=== PATIENT | female | born 1995 | race Caucasian/White ===

== ENCOUNTER 2023-09-08 13:41 | Outpatient (CLI) | payer OTHER, SELFPAY ==
[2023-09-08 13:17] LABS: Abs Immature Grans 0.03 10^3/uL (0.0-0.06); Absolute Basophil Count 0.04 10^3/uL (0.0-0.2); Absolute Eosinophil Count 0.12 10^3/uL (0.0-0.7); Absolute Lymphocyte Count 1.96 10^3/uL (1.2-3.4); Absolute Neutrophil Count 4.63 10^3/uL (1.2-6.7); Basophils % 0.6 %; Eosinophils % 1.7 %; HCT 40.5 % (36.0-46.0); HGB 14.1 g/dL (11.2-15.7); Immature Grans % 0.4 %; Lymphocytes % 27.7 %; MCHC 34.8 % (32.0-36.0); MCV 86 fL (80-95); MPV 9.9 fL (8.0-11.0); Monocytes % 4.2 %; Neutrophils % 65.4 %; Platelet Count 202 10^3/uL (130-400); RDW 13.2 % (11.7-14.6); RDW-SD 41.1 fL; WBC 7.08 10^3/uL (4.4-10.8)
== END 2023-09-08 13:42 | disposition home or self-care (01) ==
LOC: LBO 13:43
PROVIDERS: Visit Provider Obstetrics & Gynecology
DX: O03.9 Complete or unspecified spontaneous abortion without complication (principal)
CPT/HCPCS: 36415; 86850; 86900; 86901; 85025

== ENCOUNTER 2023-09-09 09:55 | Day surgery (SDC) | payer OTHER, SELFPAY ==
[2023-09-09] VITALS (8 sets, daily range): BP systolic 76–104; BP diastolic 48–68; PULSE 72–85; RESP 14–17; TEMP 36.4–36.6; O2SAT 98–100; BMI 26.6
[2023-09-09] MEDS: DOXYCYCLINE 100 MG in Normal Saline 100 ML IVPB (10:35)
[2023-09-09] MEDS: Normal Saline 1,000 ML 125 ML IV (10:38)
--- NOTE | 2023-09-09 10:45 | ANES.PREOP_ITS ---
General Info Date of Service Date Performed: 09/09/23 Height: 5 ft 3 in Weight: 68.4 kg Body Mass Index (BMI): 26.6 Surgical Procedure: Operation Date: 09/09/23 10:40 Proposed Procedure Side Surgeon p Suction D&C Caitlin Felipe DO Meds Allergies and Home Medications Allergies Allergy/AdvReac Type Severity Reaction Status Date / Time epinephrine AdvReac Cardiac Verified 09/09/23 10:07 Dysrhythmia codiene AdvReac Other (See Uncoded 09/09/23 10:07 Comment) Home Medication Medication Instructions Recorded vits no.126-ferrous fum tab PO 09/08/23 28 mg iron-folic acid 800 mcg tablet (Classic ) Current Visit Medications: Current Medications Generic Name Dose Route Start Last Admin Trade Name Freq PRN Reason Stop Dose Admin Sodium Chloride 1,000 mls @ 125 mls/hr 09/09/23 06:00 09/09/23 10:38 Saline 1000ml Bag IV 09/09/23 23:59 125 mls/hr INFUSION JORGE Administration Doxycycline Hyclate 100 mg/ 100 mls @ 100 mls/hr 09/09/23 06:00 09/09/23 10:35 Sodium Chloride IVPB 09/09/23 23:59 100 mls/hr PREOP JORGE Administration IV Miscellaneous Supplies 1 each 09/09/23 06:00 Iv Access IV 09/09/23 23:59 DIRECTED JORGE Sodium Chloride 0 ml 09/09/23 06:00 Normal Saline Flush 10 Ml Syr IV 09/09/23 23:59 PRN PRN Sodium Chloride 0 ml 09/09/23 06:00 Normal Saline 10 Ml Vial IJ 09/09/23 23:59 DIRECTED PRN Sterile Water 0 ml 09/09/23 06:00 Water,Injection,Sterile 10 Ml Vial IJ 09/09/23 23:59 DIRECTED PRN PFSH Active Problems Active Problems: Problem Status Onset Code Miscarriage O03.9 Surgical History Surgical History (Updated 09/08/23 @ 13:09 by Renetta Kennedy RN) [place] teeth extracted History of low transverse section Tobacco Smoking/Tobacco Use Status: Never Alcohol Alcohol Intake: never Substance Use Substance use: Never Prental History History 4 Para Hx # Term Pregnancies 2 Multiple births Hx # Pregnancies Ectopic pregnancies AB induced Hx Number of Living Children 2 AB spontaneous 1 Past Pregnancies Del. Date GA/Weeks # Preg Succ Route Wgt Sex Labor Lgth Anesth esia Location Prov Complic Unknown 40 Yes Unknown 6 No Unknown Yes vaginal Delivery Date: Last Updated by: Caitlin Felipe, DO Spontaneous miscarriage Vital Signs and Lab Results Vital Signs Most Recent Vital Signs in EMR: Most Recent Vital Signs Temp Pulse Resp BP Pulse Ox 36.6 C 75 16 104/68 100 09/09/23 10:25 09/09/23 10:25 09/09/23 10:25 09/09/23 10:25 09/09/23 10:25 Lab Results Blood Type / Crossmatch: Antibody Screen NEGATIVE 09/08/23 Complete Blood Count: White Blood Count 7.08 10^3/uL (4.4-10.8) 09/08/23 12:55 Red Blood Count 4.70 10^6/uL (3.93-5.22) 09/08/23 12:55 Hemoglobin 14.1 g/dL (11.2-15.7) 09/08/23 12:55 Hematocrit 40.5 % (36.0-46.0) 09/08/23 12:55 Platelet Count 202 10^3/uL (130-400) 09/08/23 12:55 Complete Metabolic Panel: No Data to Display Liver Function Panel: No Data to Display Coagulation Panel: No Data to Display Cardiac Panel: No Data to Display Arterial Blood Gas: No Data to Display Venous Blood Gas: No Data to Display Pancreas Panel: No Data to Display Thyroid Panel: No Data to Display Infectious Disease: No Data to Display Blood Cultures: No Data to Display Toxicology Panel: No Data to Display Panel: No Data to Display Anesthesia Assessment and Plan Anesthesia History Personal History: No History of Anesthesia Complications Family History: No Family History of Anesthesia Complications Exercise Tolerance Exercise Tolerance: Metabolic Equivalents>4 Pertinent Negatives Pertinent Negatives: No Symptoms of GERD, No Major Cardiovascular Symptoms or Complaints and No Major Pulmonary Symptoms or Complaints Cardiac & Pulmonary Exam Cardiac Exam: Normal S1/S2 Heart Sounds Pulmonary Exam: Clear Bilateral Breath Sounds Implantable Cardiac Device Does patient have a Pacemaker or an ICD?: No Airway Exam Known Difficult Airway: No Mallampati Class: 1 Mouth Opening: Normal (> 3cm) Thyromental Distance: Greater than 3 cm Neck Range of Motion: Full ROM Neck Circumference: Normal Teeth Condition: Normal Dentition ASA Classification ASA Score: ASA 2 Emergency Case?: No NPO Status NPO Status: NPO Clears >2 hours, Solids >8 hours and Full Stomach (12/week/demise) Status Status: Positive HCG Anesthesia Plan Resuscitation Status: Full Code Anesthesia Technique: General Anesthesia Airway Planned: Endotracheal Tube Monitors Used: Standard Monitors
--- NOTE | 2023-09-09 11:50 | POCSPONT_PTH ---
PATIENT: Nayeli Flowers LOC: [facility] U#:[id number] AGE/SX: 28/F ROOM: RE09/09/[address]: Caitlin Felipe DO : 1995 BED: DIS: 09/09/2023 SPEC #: [id number] RECD: 09/09/23 12:45 STATUS: BRYAN REQ #: [id number] VAISHNAVI: 09/09/23 11:[address]: Caitlin Felipe DEPT: Surgical Specimen RECD BY: Pia Castañeda ENTERED: 09/09/23 12:51 SP TYPE: AAKASH SANCHEZ DR: None Tissues: 1 - ,SPONTANEOUS CHROMOSOME ANALYSIS PROFILE Procedures: GROSS AND MICRO LEVEL 4 CHROMOSOME ANALYSIS 15-20 CELLS CHROMOSOME ANALYSIS TISSUE CULTURE Comments: [id number] (CYTOGENETICS CG24- )
--- NOTE | 2023-09-09 12:01 | ROE_ITS ---
Date of service: 09/09/23 Time of Service: 12:01 Operative Note Operative Note DATE OF PROCEDURE: 09/09/23 PRE-OP DIAGNOSIS: Intrauterine embryonic demise POST-OP DIAGNOSIS: same PROCEDURE: Dilation and curettage with suction SURGEON: Caitlin Felipe ASSISTING SURGEON: Sabrina Cox ANESTHESIA TYPE: General LMA/ETT Refer to Anesthesia Record ESTIMATED BLOOD LOSS: 100 PATHOLOGY: other (Uterine contents, products of conception for gross, micro, and cytogenetics) COMPLICATIONS: None Patient was transported to: PACU Patient's condition: stable Indications: Intrauterine embryonic demise, 10 weeks 5 days by measurement Findings: Ultrasound confirmed intrauterine embryonic demise. Complete emptying of the uterine cavity confirmed by ultrasound Procedure Description: After full informed consent was obtained, patient was taken the operating suite. She received doxycycline IV for surgical infection prophylaxis. Her bladder was previously emptied. She had pneumatic compression stockings for DVT prophylaxis. She was placed in the supine position and endotracheal intubation performed from the administration of general anesthesia with ease. She was then placed in the modified dorsolithotomy position and prepped and draped in the usual sterile fashion. Exam under anesthesia revealed a uterus that was midline, mobile, and approximately 10 to 12 weeks size. Under ultrasound guidance, dilation and curettage performed. Speculum was inserted into the vaginal vault and an Allis clamp used to grasp the anterior lip of the cervix. Cervical os dilated to the point that a 10 [place] curved suction curette could be passed without difficulty. Under ultrasound guidance, with suction curettage, the uterine cavity was evacuated. After 2 passes with the suction curette a gentle sharp curettage under ultrasound guidance was performed. A second pass with the suction curette was performed to confirm complete emptying. At this point with the uterus firm, involuted, and hemostatic, the procedure was terminated. Speculum was removed as was Allis clamp. The patient was returned to the dorsal supine position and awoke from anesthesia without difficulty. She was taken to the postanesthesia care unit in stable condition. EBL: 100 mL Findings: Intrauterine embryonic demise with complete evacuation of the uterine cavity. Pathology: Uterine contents, products of conception for gross, micro, and cytogenetics. Fluids: Crystalloid per anesthesia. Complications: None apparent
--- NOTE | 2023-09-09 13:02 | W.ANESPOSTOP ---
Postoperative Evaluation Date, Time and Location Date Performed: 09/09/23 Time Performed: 12:58 Patient Location: Day Surgery Unit Vital Signs Most Recent Imported Vital Signs: Most Recent Vital Signs Temp Pulse Resp BP Pulse Ox 36.6 C 72 16 76/48 L 100 09/09/23 12:38 09/09/23 12:38 09/09/23 12:38 09/09/23 12:38 09/09/23 12:38 Pain Score Most Recent Pain Score: Most Recent Pain Score Pain Level 0 09/09/23 12:38 Assessment Mental Status: Awake (Alert & Oriented to Patient Baseline) Airway and Respiratory Function: Patent airway with normal (patient baseline) respiratory exam Cardiovascular Function: Hemodynamically Stable Hydration Status: Adequately Hydrated Nausea & Vomiting: No Nausea or Vomiting Pain: Pt. Denies Any Pain Peripheral Nerve Block: Patient did not receive a nerve block
== END 2023-09-09 13:34 | disposition home or self-care (01) ==
PROVIDERS: Visit Provider Obstetrics & Gynecology
PROC: (CPT 59841; principal; 2023-09-09 10:30)
DX: O02.1 Missed abortion (principal); Z3A.10 10 weeks gestation of pregnancy
CPT/HCPCS: 59820; 88305; 88233; 88262; J0330; J1100; J1885; J2001; J2250; J2405; J2704

== ENCOUNTER 2023-10-05 16:27 | Outpatient (CLI) | payer OTHER, SELFPAY ==
[2023-10-05 16:26] LABS: HCG Quant, Pregnancy 2 mIU/mL (1-3)
== END 2023-10-05 16:28 | disposition home or self-care (01) ==
LOC: LBO 16:28
PROVIDERS: PCP Nurse Practitioner Adult Health; Visit Provider Obstetrics & Gynecology
DX: Z98.890 Other specified postprocedural states (principal)
CPT/HCPCS: 36415; 84702

== ENCOUNTER 2023-12-15 09:32 | Day surgery (SDC) | payer OTHER, SELFPAY ==
--- NOTE | 2023-12-14 20:01 | W.PREOPHP ---
Assessment and Plan Assessment and plan (1) Umbilical hernia: Status: Acute Assessment and plan: We reviewed the plan for an open umbilcal hernia repair with implantation of a permanent mesh today. Nayeli has no new questions or concerns and we can proceed as plan. History of Present Illness History of Present Illness Chief Complaint: umbilical hernia Narrative: Nayeli 28 years old, she tells me she was first noticed the hernia about 3 years ago. It started as a lump around her umbilicus, and increased in size over the coming months. Generally, it did not bother her, but during her last , she did notice increasing episodes of the abdominal pain, and some discoloration of the skin overlying the hernia itself. She denies any obstructive symptoms like nausea or vomiting. 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 Status post dilation and curettage (Acute) 11-week intrauterine embryonic demise 09/09/2023 Miscarriage (Acute) Surgical History [place] teeth extracted History of low transverse section Social History Smoking/Tobacco Use Status: Never Smoking risk assessment performed?: Yes Alcohol Intake: current Alcohol Intake frequency: a few times a month Drug use: Never Substance use type: does not use Housing: apartment Number of Children: 2 Sexually active: Yes Do you feel safe at home: Yes ([facility]AP) Do you feel safe in your relationship?: Yes History History 4 Para Hx # Term Pregnancies 2 Multiple births Hx # Pregnancies Ectopic pregnancies AB induced Hx Number of Living Children 2 AB spontaneous 1 Past Pregnancies Del. Date GA/Weeks # Preg Succ Route Wgt Sex Labor Lgth Anesthesia Location Prov Complic Unknown 40 Yes Unknown 6 No Unknown Yes vaginal Delivery Date: Last Updated by: Caitlin Felipe, DO Spontaneous miscarriage Meds Allergies and Home Medications Allergies Allergy/AdvReac Type Severity Reaction Status Date / Time codeine Allergy Intermediate Hives Verified 12/15/23 09:58 epinephrine AdvReac Cardiac Verified 12/15/23 09:58 Dysrhythmia Home Medications ?Medication ?Instructions ?Recorded ?Confirmed ?Type vits no.126-ferrous fum 1 tab PO DAILY 09/08/23 12/15/23 History 28 mg iron-folic acid 800 mcg tablet (Classic ) ibuprofen 800 mg tablet 800 mg PO Q8H PRN #60 tabs 09/09/23 12/15/23 Rx cholecalciferol (vitamin D3) 25 25 mcg PO DAILY 10/05/23 12/15/23 History mcg (1,000 unit) capsule omega-3 fatty acids 1,000 mg 1,000 mg PO DAILY 10/05/23 12/15/23 History capsule Exam Const General: cooperative, healthy appearing and not in acute distress Neck Neck: normal visual inspection, no lymphadenopathy and supple Resp Effort & Inspection: normal respiratory effort Auscultation: clear to auscultation bilaterally Cardio Jugular venous pressure: no JVD Rate: regular rate Rhythm: regular rhythm Heart Sounds: S1 normal and S2 normal GI Inspection: normal to inspection Palpation: soft, no guarding, hernia (Mostly reducible umbilical) and nontender Percussion: normal to percussion Auscultation: normal bowel sounds Neuro General: patient alert, patient awake and patient oriented x3 Psych Appearance: grossly normal
--- NOTE | 2023-12-14 20:02 | W.PM.DSUDISC ---
Date of service: 12/15/23 Time of Service: 11:40 Discharge Plan Disposition Patient Disposition: Home Condition: Good Discharge Details Reason For Visit: umbilical hernia repair Attending Provider: Bowen Ngo Primary Care Provider: Janneth Cardoso Home Meds and New Rx's Prescriptions: New tramadol 50 mg tablet 50 mg PO Q8H PRNQty: 12 0RF Rx Instructions: Take 1 tablet by mouth up to every 8 hours if needed for severe pain. Continued omega-3 fatty acids 1,000 mg capsule 1,000 mg PO DAILY cholecalciferol (vitamin D3) 25 mcg (1,000 unit) capsule 25 mcg PO DAILY Classic 28 mg iron- 800 mcg tablet 1 tab PO DAILY ibuprofen 800 mg tablet 800 mg PO Q8H PRNQty: 60 1RF Discharge Instructions Instructions: Abdominal Hernia Repair, Open Surgery Additional Instructions: Nayeli, we were able to repair your hernia today just like we talked about beforehand. It contained just a small amount of internal abdominal fat, but nothing at all worrisome. I placed a permanent patch, close the hole over top of that. Hopefully this will be a durable repair for you in the years to come. Expect to have some pain in the area over the next few days. I recommend taking Tylenol and ibuprofen [id number], and I also provided a prescription for a medication called tramadol if you need it. Ice packs will also prove quite useful to help with the discomfort. You should be up and walking around a little bit more more each day. Avoid lifting anything greater than 5 pounds until we see each other in the office. If you need anything at all, please feel free to give me a call at any time. 1. Resume all of your regular medications. 2. Alternate heating pads and ice packs as needed for pain. 3. Alternate over the counter Tylenol and ibuprofen every 6 hours for the first 2 days, then use as needed. Use the prescription for tramadol if needed for more severe pain. 4. Leave bandage in place for 24 hours, then remove. 5. Shower with warm soapy water. Pat dry. Use a bandaid if needed to protect your clothing. 6. No soaking or tub baths until I see you in the office. 7. No heavy lifting until I see you in the office. 8.Call the office (or go directly to the emergency room after hours) if you notice any of the following: Develop chills (warm to touch), or if you have a thermometer and your temperature is above 101 Difficulty breathing or difficultly swallowing Persistent vomiting Any bleeding ? exceeding one tablespoon 9. Call your physician if the site where your intravenous was started becomes red, swollen, painful, and warm to touch. Stand Alone Forms: Anesthesia Discharge Inst., Angela Calderon (DSU) Referrals: Bowen Ngo MD [ [facility] STAFF PHYSICIAN] - 12/28/23 2:30 pm Activity:: no heavy lifting Remove Dressings/Wound Care:: 24 hours Shower/Bathe:: 24 hours Diet:: As Tolerated Discharge Orders Discharge Orders: Discharge Order (Routine); Ordered 12/14/23 Ordered By: Bowen Ngo DS: Diagnosis Discharge Diagnosis (1) Umbilical hernia: Status: Acute Asessment and Plan: Outpatient follow-up
--- NOTE | 2023-12-14 20:06 | W.PM.OP ---
Date of service: 12/15/23 Time of Service: 11:43 Operative Note Operative Note DATE OF PROCEDURE: 12/15/23 PRE-OP DIAGNOSIS: Umbilical hernia POST-OP DIAGNOSIS: same PROCEDURE: Open umbilical hernia repair with mesh SURGEON: Bowen Ngo ENGINEERING TECHNICAL ANALYST: Sandra Galindo ANESTHESIA TYPE: Local By Surgeon and General LMA/ETT Refer to Anesthesia Record ESTIMATED BLOOD LOSS: 10 PATHOLOGY: none sent COMPLICATIONS: None Patient was transported to: PACU Patient's condition: stable Implants: Bard Ventralex ST hernia patch Indications: Nayeli is a 28-year-old woman with a symptomatic umbilical hernia Findings: Approximately 2 cm x 2 cm umbilical ring hernia defect Procedure Description: After the induction of general tracheal anesthesia, I prepped and draped the anterior abdominal wall in the usual fashion. Next, I established a generous field block using local anesthetic. I then made a small semicircular incision along the underside of the umbilicus. I carefully dissected down to the fascia along the inferior border. Next, I isolated the umbilical stalk using blunt dissection. Hernia sac was slightly to the right side, and this was dissected free from the surrounding subcutaneous tissues and fascial edge. The hernia appeared to contain visceral fat. It was reduced back into the peritoneal space. The underside of the fascia was dissected clear, and a Bard Ventralex ST hernia patch was selected to fit. I used a 4.3 cm patch this was affixed to the underside of the fascia with interrupted Prolene in a U-stitch fashion. The patch was parachuted down below the fascia and secured in place. Great care was taken to ensure that it was brought out appropriately and had good coverage of the underside the tails of the patch were split, and affixed to the fascia as well. The fascial defect was then closed with interrupted Prolene's. Surgical site was irrigated. It was hemostatic. The subcuticular space was closed with interrupted Vicryl's, and the skin was closed with a running subcuticular stitch. Bandages were applied, the patient was not awakened from the anesthetic and transferred to the recovery unit.
[2023-12-15] VITALS (19 sets, daily range): BP systolic 102–126; BP diastolic 62–93; PULSE 63–85; RESP 12–20; TEMP 36–36.5; O2SAT 95–100; BMI 26.9
--- NOTE | 2023-12-15 08:36 | W.ANESPRE ---
General Info Date of Service Date Performed: 12/15/23 Height: 5 ft 3 in Weight: 69.059 kg Body Mass Index (BMI): 26.9 Surgical Procedure: Operation Date: 12/15/23 10:10 Proposed Procedure Side Surgeon p Herniorrhaphy Umbilical w/Mesh Bowen Ngo MD Meds Allergies and Home Medications Allergies Allergy/AdvReac Type Severity Reaction Status Date / Time codeine Allergy Intermediate Hives Verified 12/15/23 09:58 epinephrine AdvReac Cardiac Verified 12/15/23 09:58 Dysrhythmia Home Medication ?Medication ?Instructions ?Recorded vits no.126-ferrous fum 1 tab PO DAILY 09/08/23 28 mg iron-folic acid 800 mcg tablet (Classic ) ibuprofen 800 mg tablet 800 mg PO Q8H PRN #60 tabs 09/09/23 cholecalciferol (vitamin D3) 25 25 mcg PO DAILY 10/05/23 mcg (1,000 unit) capsule omega-3 fatty acids 1,000 mg 1,000 mg PO DAILY 10/05/23 capsule Current Visit Medications: Current Medications Generic Name Dose Route Start Last Admin Trade Name Freq PRN Reason Stop Dose Admin Acetaminophen 1,000 mg 12/15/23 06:00 Acetaminophen 500 Mg Tab PO 12/15/23 18:00 PREOP JORGE Celecoxib 200 mg 12/15/23 06:00 Celecoxib 200 Mg Cap PO 12/15/23 18:00 PREOP JORGE Gabapentin 600 mg 12/15/23 06:00 Gabapentin 300 Mg Cap PO 12/15/23 18:00 PREOP JORGE Hydromorphone HCl 0.2 mg 12/14/23 20:08 Hydromorphone 2 Mg/Ml Syr IVP 01/13/24 20:07 Q1H PRN PRN Ringer's Solution 1,000 mls @ 80 mls/hr 12/15/23 06:00 IV 01/13/24 23:59 INFUSION JORGE IV Miscellaneous Supplies 1 each 12/15/23 06:00 Iv Access IV 01/13/24 23:59 DIRECTED JORGE Sodium Chloride 0 ml 12/15/23 06:00 Normal Saline Flush 10 Ml Syr IV 01/13/24 23:59 PRN PRN Sodium Chloride 0 ml 12/15/23 06:00 Normal Saline 10 Ml Vial IJ 01/13/24 23:59 DIRECTED PRN Sterile Water 0 ml 12/15/23 06:00 Water,Injection,Sterile 10 Ml Vial IJ 01/13/24 23:59 DIRECTED PRN Tramadol HCl 50 mg 12/14/23 20:08 Tramadol 50 Mg Tab PO 01/13/24 20:07 Q6H PRN PRN Pain PFSH Active Problems Active Problems: Problem Status Onset Code Umbilical hernia Acute K42.9 Abnormal genetic test Acute R89.8 Status post dilation and curettage Acute Z98.890 Miscarriage Acute O03.9 Surgical History Surgical History [place] teeth extracted History of low transverse section Tobacco Smoking/Tobacco Use Status: Never Alcohol Alcohol Intake: current Alcohol intake frequency: a few times a month Substance Use Substance use: Never Substance use type: does not use Prental History History 4 Para Hx # Term Pregnancies 2 Multiple births Hx # Pregnancies Ectopic pregnancies AB induced Hx Number of Living Children 2 AB spontaneous 1 Past Pregnancies Del. Date GA/Weeks # Preg Succ Route Wgt Sex Labor Lgth Anesthesia Location Prov Complic Unknown 40 Yes Unknown 6 No Unknown Yes vaginal Delivery Date: Last Updated by: Caitlin Felipe DO Spontaneous miscarriage Vital Signs and Lab Results Vital Signs Most Recent Vital Signs in EMR: Temp Pulse Resp BP Pulse Ox 36.1 C L 75 16 114/79 100 12/15/23 10:00 12/15/23 10:00 12/15/23 10:00 12/15/23 10:00 12/15/23 10:00 Lab Results Blood Type / Crossmatch: No Data to Display Complete Blood Count: No Data to Display Complete Metabolic Panel: No Data to Display Liver Function Panel: No Data to Display Coagulation Panel: No Data to Display Cardiac Panel: No Data to Display Arterial Blood Gas: No Data to Display Venous Blood Gas: No Data to Display Pancreas Panel: No Data to Display Thyroid Panel: No Data to Display Infectious Disease: No Data to Display Blood Cultures: No Data to Display Toxicology Panel: No Data to Display Panel: No Data to Display Anesthesia Assessment and Plan Anesthesia History Personal History: No History of Anesthesia Complications Family History: No Family History of Anesthesia Complications Exercise Tolerance Exercise Tolerance: Metabolic Equivalents>4 Pertinent Negatives Pertinent Negatives: No Symptoms of GERD, No Major Cardiovascular Symptoms or Complaints and No History of CVA/TIA Cardiac & Pulmonary Exam Cardiac Exam: Normal S1/S2 Heart Sounds Pulmonary Exam: Clear Bilateral Breath Sounds Cardiac and Pulmonary Comment:: Recent URI: 7 days out. Here and NPO, we will proceed today Implantable Cardiac Device Does patient have a Pacemaker or an ICD?: No Airway Exam Known Difficult Airway: No Mallampati Class: 1 Mouth Opening: Normal (> 3cm) Thyromental Distance: Greater than 3 cm Neck Range of Motion: Full ROM Neck Circumference: Normal Teeth Condition: Normal Dentition ASA Classification ASA Score: ASA 2 Emergency Case?: No NPO Status NPO Status: NPO Clears >2 hours, Solids >8 hours Status Status: Negative HCG Anesthesia Plan Resuscitation Status: Full Code Anesthesia Technique: General Anesthesia Airway Planned: LMA Monitors Used: Standard Monitors
[2023-12-15] MEDS: Celecoxib 200 MG CAP PO (10:10)
[2023-12-15] MEDS: Acetaminophen 500 MG TAB 1000 MG PO (10:10)
[2023-12-15] MEDS: Gabapentin 300 MG CAP 600 MG PO (10:10)
[2023-12-15] MEDS: Lactated Ringers 1,000 ML 80 ML IV (10:45)
[2023-12-15] MEDS: ceFAZolin 2 GM/50 ML BAG 100 GM (11:01)
[2023-12-15] MEDS: Bupivacaine 0.25% Pres-Free 30 ML VIAL (11:14)
--- NOTE | 2023-12-15 12:54 | W.ANESPOSTOP ---
Postoperative Evaluation Date, Time and Location Date Performed: 12/15/23 Time Performed: 12:54 Patient Location: Day Surgery Unit Vital Signs Most Recent Imported Vital Signs: Most Recent Vital Signs Temp Pulse Resp BP Pulse Ox 36 C L 68 16 104/74 99 12/15/23 12:30 12/15/23 12:30 12/15/23 12:30 12/15/23 12:30 12/15/23 12:30 Pain Score Most Recent Pain Score: Most Recent Pain Score Pain Level 0 12/15/23 12:30 Assessment Mental Status: Arousable with meaningful communication Airway and Respiratory Function: Patent airway with normal (patient baseline) respiratory exam Cardiovascular Function: Hemodynamically Stable Hydration Status: Adequately Hydrated Nausea & Vomiting: No Nausea or Vomiting Pain: Pt. Denies Any Pain Peripheral Nerve Block: Patient did not receive a nerve block
== END 2023-12-15 13:35 | disposition home or self-care (01) ==
LOC: SUR 09:32
PROVIDERS: PCP Nurse Practitioner Adult Health; Visit Provider Surgery
PROC: (CPT 49591; principal; 2023-12-15 10:00)
DX: K42.9 Umbilical hernia without obstruction or gangrene (principal)
CPT/HCPCS: 49591; 81025; C1781; J0665; J0690; J1100; J2001; J2250; J2405; J2704; J3010

== ENCOUNTER 2024-07-11 01:39 | Outpatient (CLI) | payer OTHER, SELFPAY ==
[2024-07-11 16:29] LABS: HCG Quant, Pregnancy 16 mIU/mL (1-3)
== END 2024-07-11 01:40 | disposition home or self-care (01) ==
LOC: LBO 01:39
PROVIDERS: PCP Nurse Practitioner Adult Health; Visit Provider Obstetrics & Gynecology
DX: N91.0 Primary amenorrhea (principal)
CPT/HCPCS: 36415; 84702

== ENCOUNTER 2024-07-13 01:34 | Outpatient (CLI) | payer OTHER, SELFPAY ==
[2024-07-13 17:25] LABS: HCG Quant, Pregnancy 18 mIU/mL (1-3)
== END 2024-07-13 01:35 | disposition home or self-care (01) ==
PROVIDERS: PCP Nurse Practitioner Adult Health; Visit Provider Obstetrics & Gynecology
DX: N91.0 Primary amenorrhea (principal); O02.81 Inappropriate change in quantitative human chorionic gonadotropin (hCG) in early pregnancy
CPT/HCPCS: 36415; 84702

== ENCOUNTER 2024-07-18 14:28 | Outpatient (CLI) | payer OTHER, SELFPAY ==
[2024-07-18 16:14] LABS: HCG Quant, Pregnancy 2 mIU/mL (1-3); TSH (W/Ref FT4) 1.78 uIU/mL (0.36-3.74)
== END 2024-07-18 14:29 | disposition home or self-care (01) ==
LOC: LBO 14:29
PROVIDERS: PCP Nurse Practitioner Adult Health; Visit Provider Obstetrics & Gynecology
DX: O03.9 Complete or unspecified spontaneous abortion without complication (principal); N96 Recurrent pregnancy loss; O02.81 Inappropriate change in quantitative human chorionic gonadotropin (hCG) in early pregnancy
CPT/HCPCS: 36415; 84443; 84702

== ENCOUNTER 2024-08-14 11:58 | Outpatient (CLI) | payer OTHER, SELFPAY ==
[2024-08-14 12:29] LABS: Abs Immature Grans 0.02 10^3/uL (0.0-0.06); Absolute Basophil Count 0.03 10^3/uL (0.0-0.2); Absolute Eosinophil Count 0.09 10^3/uL (0.0-0.7); Absolute Lymphocyte Count 1.63 10^3/uL (1.2-3.4); Absolute Monocyte Count 0.32 10^3/uL (0.1-0.8); Absolute Neutrophil Count 4.79 10^3/uL (1.2-6.7); Basophils % 0.4 %; Eosinophils % 1.3 %; HCT 46.1 % (36.0-46.0); HGB 15.6 g/dL (11.2-15.7); Immature Grans % 0.3 %; Lymphocytes % 23.7 %; MCH 29.7 pg (27.0-33.0); MCHC 33.8 % (32.0-36.0); MCV 88 fL (80-95); MPV 9.9 fL (8.0-11.0); Monocytes % 4.7 %; Neutrophils % 69.6 %; Platelet Count 200 10^3/uL (130-400); RBC 5.25 10^6/uL (3.93-5.22); RDW 12.6 % (11.7-14.6); RDW-SD 40.4 fL; WBC 6.88 10^3/uL (4.4-10.8)
[2024-08-14 13:35] LABS: ALT 26 U/L (14-59); AST 13 U/L (15-37); Albumin 4.2 g/dL (3.4-5.0); Alkaline Phosphatase 74 U/L (46-116); Anion Gap 9.2 mmol/L (3-11); BUN 11 mg/dL (7-18); Bilirubin, Total 0.5 mg/dL (0.2-1.0); CO2 25.8 mmol/L (21.0-32.0); CREATININE 0.8 mg/dL (0.55-1.02); Calcium 9.2 mg/dL (8.5-10.1); Chloride 106 mmol/L (98-107); Estimated GFR 101.59 (mL/min/1.73m2); Glucose 81 mg/dL (74-106); Potassium 3.9 mmol/L (3.5-5.1); Sodium 141 mmol/L (136-145); TSH (W/Ref FT4) 1.39 uIU/mL (0.36-3.74); Total Protein 7.5 g/dL (6.4-8.2)
[2024-08-15 08:04] LABS: Rubella IgG Ab (UVM) Positive (See Note)
[2024-08-16 22:31] LABS: Phospholipid Ab, IgG <9.4 GPL; Phospholipid Ab, IgM <9.4 MPL
[2024-08-17 10:19] LABS: Factor V Leiden(R506Q) Mut Negative (Negative)
[2024-08-22 14:42] LABS: Result Summary Normal; Specimen Blood
== END 2024-08-14 11:59 | disposition home or self-care (01) ==
PROVIDERS: PCP Nurse Practitioner Adult Health; Visit Provider Obstetrics & Gynecology
DX: N96 Recurrent pregnancy loss (principal)
CPT/HCPCS: 36415; 80053; 81229; 81241; 86147; 84443; 85025; 86762

== ENCOUNTER 2024-10-16 12:20 | Outpatient (CLI) | payer OTHER, SELFPAY ==
[2024-10-16 12:58] LABS: HCG Quant, Pregnancy 143 mIU/mL (1-3)
[2024-10-17 00:38] LABS: Progesterone 19.6 ng/mL (See Table)
[2024-10-26 15:26] LABS: Result 46,XX; Result Summary Normal; Specimen Blood
== END 2024-10-16 12:21 | disposition home or self-care (01) ==
LOC: LBO 12:23
PROVIDERS: PCP Nurse Practitioner Adult Health; Visit Provider Advanced Practice Midwife
DX: N96 Recurrent pregnancy loss (principal); Z34.91 Encounter for supervision of normal pregnancy, unspecified, first trimester
CPT/HCPCS: 36415; 88230; 88262; 88291; 84144; 84702

== ENCOUNTER 2024-10-18 01:33 | Outpatient (CLI) | payer OTHER, SELFPAY ==
[2024-10-18 14:13] LABS: HCG Quant, Pregnancy 268 mIU/mL (1-3)
== END 2024-10-18 01:34 | disposition home or self-care (01) ==
LOC: LBO 01:33
PROVIDERS: PCP Nurse Practitioner Adult Health; Visit Provider Advanced Practice Midwife
DX: N96 Recurrent pregnancy loss (principal); Z3A.01 Less than 8 weeks gestation of pregnancy
CPT/HCPCS: 36415; 84702; 88230; 88262

== ENCOUNTER 2024-10-25 04:32 | Outpatient (CLI) | payer OTHER, SELFPAY ==
[2024-10-25 14:39] LABS: HCG Quant, Pregnancy 8002 mIU/mL (1-3)
== END 2024-10-25 04:33 | disposition home or self-care (01) ==
LOC: LBO 04:32
PROVIDERS: PCP Nurse Practitioner Adult Health; Visit Provider Advanced Practice Midwife
DX: Z34.91 Encounter for supervision of normal pregnancy, unspecified, first trimester (principal)
CPT/HCPCS: 36415; 84702

== ENCOUNTER 2024-10-30 14:57 | Outpatient (REF) | payer OTHER, SELFPAY ==
[2024-10-30 16:40] LABS: Glucose Negative (Negative)
== END 2024-10-30 14:58 | disposition home or self-care (01) ==
LOC: LBN 14:57
PROVIDERS: PCP Nurse Practitioner Adult Health; Visit Provider Advanced Practice Midwife
DX: Z3A.01 Less than 8 weeks gestation of pregnancy (principal); Z34.91 Encounter for supervision of normal pregnancy, unspecified, first trimester
CPT/HCPCS: 81003; 87480; 87510; 87660

== ENCOUNTER 2024-12-04 04:40 | Outpatient (CLI) | payer BC, SELFPAY ==
[2024-12-04 15:47] LABS: Abs Immature Grans 0.05 10^3/uL (0.0-0.06); HCT 37.5 % (36.0-46.0); HGB 13.0 g/dL (11.2-15.7); Immature Grans % 0.6 %; MCH 29.2 pg (27.0-33.0); MCHC 34.7 % (32.0-36.0); MCV 84 fL (80-95); MPV 10.0 fL (8.0-11.0); Platelet Count 230 10^3/uL (130-400); RBC 4.45 10^6/uL (3.93-5.22); RDW 12.1 % (11.7-14.6); RDW-SD 36.2 fL; WBC 8.09 10^3/uL (4.4-10.8)
[2024-12-05 10:29] LABS: Rubella IgG Ab (UVM) Positive (See Note)
[2024-12-05 11:46] LABS: HIV-1/2 Ag & Ab Screen Negative (Negative)
[2024-12-06 16:14] LABS: Hepatitis C Ab w Rflx HCV PCR Negative (Negative)
[2024-12-06 20:34] LABS: Syphilis IgG w/Reflex Nonreactive (Nonreactive)
== END 2024-12-04 04:41 | disposition home or self-care (01) ==
LOC: LBO 04:40
PROVIDERS: Advanced Practice Midwife; PCP Nurse Practitioner Adult Health; Visit Provider Advanced Practice Midwife
DX: Z34.91 Encounter for supervision of normal pregnancy, unspecified, first trimester (principal)
CPT/HCPCS: 36415; 86787; 86803; 86850; 86900; 86901; 87340; 87389; 85025; 86762; 86780

== ENCOUNTER 2024-12-04 15:42 | Outpatient (REF) | payer BC, SELFPAY ==
[2024-12-05 11:53] LABS: Chlamydia Result Negative (Negative); GC Result Negative (Negative)
== END 2024-12-04 15:43 | disposition home or self-care (01) ==
LOC: LBN 15:42
PROVIDERS: PCP Nurse Practitioner Adult Health; Visit Provider Advanced Practice Midwife
DX: Z34.91 Encounter for supervision of normal pregnancy, unspecified, first trimester (principal)
CPT/HCPCS: 87491; 87591; 87086

== ENCOUNTER 2024-12-15 00:27 | Outpatient (CLI) | payer BC, SELFPAY | END 2024-12-15 00:28 | disposition home or self-care (01) | LOC: LBO 00:28 | PROVIDERS: Advanced Practice Midwife; PCP Nurse Practitioner Adult Health; Visit Provider Advanced Practice Midwife | DX: Z3A.12 12 weeks gestation of pregnancy (principal); Z34.92 Encounter for supervision of normal pregnancy, unspecified, second trimester | CPT/HCPCS: 36415 ==

== ENCOUNTER 2024-12-15 11:48 | Outpatient (REF) | payer BC, SELFPAY | END 2024-12-15 11:49 | disposition home or self-care (01) | LOC: LBN 11:48 | PROVIDERS: PCP Nurse Practitioner Adult Health; Visit Provider Advanced Practice Midwife | DX: Z3A.12 12 weeks gestation of pregnancy (principal); Z34.82 Encounter for supervision of other normal pregnancy, second trimester | CPT/HCPCS: 87480; 87510; 87660 ==

== ENCOUNTER 2025-01-15 15:11 | Outpatient (REF) | payer BC, SELFPAY | END 2025-01-15 15:12 | disposition home or self-care (01) | LOC: LBN 15:11 | PROVIDERS: PCP Nurse Practitioner Adult Health; Visit Provider Obstetrics & Gynecology | DX: O23.591 Infection of other part of genital tract in pregnancy, first trimester (principal); B96.89 Other specified bacterial agents as the cause of diseases classified elsewhere | CPT/HCPCS: 87480; 87510; 87660 ==